=== PATIENT | male | born 1985 | race Hispanic/Latino ===

== ENCOUNTER 2017-10-03 19:53 | Emergency (ER) | payer SELFPAY ==
[~2017-10-03] VITALS: Ht 167.6 cm; Wt 81.6 kg
[~2017-10-03 19:53] MED LIST: AMOXICILLIN500 MG PO; NO; NYQUI1 OR; THERAFL OR
[2017-10-03] MEDS ORDERED: NAPROSYN500 MG PO (21:14)
[2017-10-03 21:33] VITALS: BP 127/85
== END 2017-10-03 21:34 | disposition home or self-care (01) | DRG 605 ==
LOC: ED 19:53
DX: S20.211A Contusion of right front wall of thorax, initial encounter (principal); S43.401A Unspecified sprain of right shoulder joint, initial encounter; S50.11XA Contusion of right forearm, initial encounter; Y35.93XA Legal intervention, means unspecified, suspect injured, initial encounter